=== PATIENT | male | born 1955 | race Caucasian/White ===

== ENCOUNTER → 2020-09-08 00:32 | Outpatient (CLI) | payer MEDICARE, SELFPAY ==
[2020-09-08 20:53] LABS: SARS-CoV-2 RNA PCR Negative
== END ==
PROVIDERS: Internal Medicine Gastroenterology; PCP Internal Medicine; Visit Provider Internal Medicine Gastroenterology
DX: Z01.812 Encounter for preprocedural laboratory examination (principal); Z20.822 Contact with and (suspected) exposure to COVID-19
CPT/HCPCS: C9803; U0003; U0005

== ENCOUNTER 2020-09-11 01:13 | Day surgery (SDC) | payer MEDICARE, SELFPAY ==
[2020-08-30 13:31] VITALS: BMI 32.6
[2020-09-11 06:23] VITALS: BP 119/70; PULSE 57; RESP 16; TEMP 36.1; O2SAT 99; BMI 31.6
--- NOTE | 2020-09-11 07:12 | PM.HPGS ---
History of Present Illness History of Present Illness Consent: Risks, benefits, and alternatives have been discussed and questions answered. Patient agrees to proceed with procedure. Chief complaint: hx of colon polyps Narrative: Spencer De La Cruz is a 65 year old male Referred for colon cancer screening. He has had multiple adenomas removed in the past. Review of Systems Review of Systems: All systems reviewed & are unremarkable except as noted in HPI and below PMFSH Social History Social History Smoking status: Never smoker Living arrangements: with family Gender identity (if verbalized by the patient): Male Spiritual care concerns: No Meds Home Medications and Allergies Home Medications Medication Instructions Recorded Confirmed Type flecainide 50 mg PO Q12H 08/30/20 09/11/20 History cykusllzeqr-npvbupqtz-qirzbssr 1 inh INHALATION DAILY 08/30/20 09/11/20 History [Trelegy Ellipta] gabapentin 300 mg PO DAILY 08/30/20 09/11/20 History glucosamine sulfate [Glucosamine] 500 mg PO DAILY 08/30/20 09/11/20 History magnesium oxide 400 mg PO BID 08/30/20 09/11/20 History metoprolol succinate 25 mg PO Q12H 08/30/20 09/11/20 History montelukast 10 mg PO DAILY 08/30/20 09/11/20 History pantoprazole 20 mg PO QAM 08/30/20 09/11/20 History ranolazine 1,000 mg PO Q12H 08/30/20 09/11/20 History Allergies Allergy/AdvReac Type Severity Reaction Status Date / Time No Known Allergies Allergy Unknown Verified 09/11/20 06:22 Vital Signs Vital Signs - 24 hr 09/11/20 06:23 Temperature 36.1 C L Pulse Rate 57 L Respiratory Rate 16 Blood Pressure 119/70 Pulse Oximetry 99 Exam Resp: Auscultation: clear to auscultation bilaterally Cardio: Rate: regular rate Rhythm: regular rhythm GI: GI Palp: Yes Soft to palpation and No Tenderness to palpation present (GI) Assessment and Plan Assessment and plan (1) Colon cancer screening: Code(s): Z12.11 - Encounter for screening for malignant neoplasm of colon Status: Acute Assessment and Plan: Colonoscopy with possible biopsy or polypectomy or cautery or injection of substances.
--- NOTE | 2020-09-11 07:17 | P.PNAN_ITS ---
Anes - Initial Pre Proc Eval Procedure: Operation Date: 09/11/20 07:30 Proposed Procedures p Screening Colonoscopy - David Collazo MD Date/Time: 09/11/20 07:17 Surgeon: David Collazo MD Pre Op Diagnosis: hx of colon polyps Patient Data Age: 65 Gender: M Height: 6 ft 5 in Weight: 121 kg Last Vital Signs Temp 97.0 F L 09/11/20 06:23 Pulse 57 L 09/11/20 06:23 Resp 16 09/11/20 06:23 BP 119/70 09/11/20 06:23 Pulse Ox 99 09/11/20 06:23 Allergies Allergy/AdvReac Type Severity Reaction Status Date / Time No Known Allergies Allergy Unknown Verified 09/11/20 06:22 Home Medications Medication Instructions Recorded Confirmed Type flecainide 50 mg PO Q12H 08/30/20 09/11/20 History erzzpdvcwuf-wgasvzufo-azalaskz 1 inh INHALATION DAILY 08/30/20 09/11/20 History [Trelegy Ellipta] gabapentin 300 mg PO DAILY 08/30/20 09/11/20 History glucosamine sulfate [Glucosamine] 500 mg PO DAILY 08/30/20 09/11/20 History magnesium oxide 400 mg PO BID 08/30/20 09/11/20 History metoprolol succinate 25 mg PO Q12H 08/30/20 09/11/20 History montelukast 10 mg PO DAILY 08/30/20 09/11/20 History pantoprazole 20 mg PO QAM 08/30/20 09/11/20 History ranolazine 1,000 mg PO Q12H 08/30/20 09/11/20 History Patient hx anesthesia problems: none Family hx anesthesia problems: none [facility] Past Medical History Medical History (Updated 09/11/20 @ 07:17 by Devin Castro MD) Asthma CAD (coronary artery disease) has ablation done for irregular heartbeat GERD (gastroesophageal reflux disease) ROSS (obstructive sleep apnea) Social History Social History Smoking status: Never smoker Living arrangements: with family Gender identity (if verbalized by the patient): Male Spiritual care concerns: No Anes - Eval Final PreProcedure Day of Procedure 09/11/20 07:17 Patient weight: obese Heart: regular rate and rhythm Lungs: clear to auscultation Airway: Mallampati scale class III Neurological: alert and oriented Last oral intake: >/= 8 hours ASA classification: III Emergent: no Anesthetic plan: proceed Anesthesia type and monitoring: general GIVS and standard monitoring Informed Consent: The patient's anesthetic plan and its attendant risks and benefits were discussed with the patient/family/POA. Questions were solicited and answers provided to the satisfaction of the patient/family/POA.
[2020-09-11] MEDS: LACTATED RINGERS 1,000 ML 150 ML IV CONT (07:46)
[2020-09-11 07:49] VITALS: BP 107/64; PULSE 52; RESP 22; O2SAT 98
[2020-09-11 07:59] VITALS: BP 105/67; PULSE 53; RESP 18; O2SAT 99
[2020-09-11 08:09] VITALS: BP 108/64; PULSE 55; RESP 16; O2SAT 98
== END 2020-09-11 08:30 | disposition home or self-care (01) ==
PROVIDERS: PCP Internal Medicine; Visit Provider Internal Medicine Gastroenterology
PROC: 0DJD8ZZ Inspection of Lower Intestinal Tract, Via Natural or Artificial Opening Endoscopic (ICD-10-PCS; CPT 45378; principal; 2020-09-11 07:30)
DX: Z12.11 Encounter for screening for malignant neoplasm of colon (principal); D12.5 Benign neoplasm of sigmoid colon; K63.5 Polyp of colon; I25.10 Atherosclerotic heart disease of native coronary artery without angina pectoris; G47.33 Obstructive sleep apnea (adult) (pediatric); J45.909 Unspecified asthma, uncomplicated; E66.9 Obesity, unspecified; Z68.31 Body mass index [BMI] 31.0-31.9, adult
CPT/HCPCS: 45380; 88305; J2704; J7120

== ENCOUNTER 2021-07-19 18:17 | Emergency (ER) | payer MEDICARE, SELFPAY ==
[2021-07-19 18:20] VITALS: BP 140/83; PULSE 86; RESP 18; TEMP 37.4; O2SAT 98
[2021-07-19 18:34] LABS: Basophils Percent Auto 0.2 % (0.2-1.2); Eosinophils Absolute Auto 0.2 K/mm3 (0-0.3); Eosinophils Percent Auto 1.6 % (0-4.4); Hematocrit 42.4 % (42.0-52.0); Immature Granulocyte Absolute 0.02 K/mm3 (0.00-0.031); Immature Granulocyte Percent A 0.2 % (0-0.5); Lymphocytes Absolute Auto 2.55 K/mm3 (0.9-3.2); Lymphocytes Percent Auto 27.6 % (18.3-44.2); Mean Corpuscular Hemoglobin 32.9 pg (26-34); Mean Corpuscular Volume 99.8 fl (80-100); Mean Platelet Volume 8.8 fl (7.4-10.4); Monocytes Absolute Auto 1.1 K/mm3 (0.1-0.6); Monocytes Percent Auto 11.7 % (2.6-8.5); Neutrophils Absolute Auto 5.4 K/mm3 (1.3-6.7); Neutrophils Percent Auto 58.7 % (45.5-73.1); Platelet Count Result 275 k/mm3 (150-375); Red Blood Count 4.25 M/mm3 (4.6-6.20); Red Cell Distribution Width 13.9 % (11.5-14.5); White Blood Count 9.2 K/mm3 (4.5-10.0)
--- NOTE | 2021-07-19 18:37 | ED.GIBLEED ---
HPI - GI Bleed General Chief complaint: GI Bleed Stated complaint: Rectal Bleeding Time Seen by Provider: 07/19/21 18:19 Source: patient History of Present Illness HPI Narrative: Patient presents with concern for GI bleed. Patient ports a history of bleeding ulcers requiring admission. Reports last GI bleed was a few years ago has been doing well since then. He came in because this afternoon he noted dark quality soft stool stool became more normal however the color remained red with a blood clot he was concerned given his history so he came to the ER for evaluation. Reports he had recent surgery on his wrist and hand has been taking NSAIDs thinks this may be a contributing factor. Denies any abdominal pain denies any nausea vomiting or hematemesis. Denies any lightheadedness or dizziness denies any chest pain. Does report mild shortness of breath cough and congestion recently reports a negative home Covid test Related Data Home Medications Medication Instructions Recorded Confirmed Trelegy Ellipta 1 inh INHALATION DAILY 08/30/20 09/11/20 flecainide 50 mg PO Q12H 08/30/20 09/11/20 gabapentin 300 mg PO DAILY 08/30/20 09/11/20 glucosamine sulfate [Glucosamine] 500 mg PO DAILY 08/30/20 09/11/20 magnesium oxide 400 mg PO BID 08/30/20 09/11/20 metoprolol succinate 25 mg PO Q12H 08/30/20 09/11/20 montelukast 10 mg PO DAILY 08/30/20 09/11/20 pantoprazole 20 mg PO QAM 08/30/20 09/11/20 ranolazine 1,000 mg PO Q12H 08/30/20 09/11/20 Allergies Allergy/AdvReac Type Severity Reaction Status Date / Time No Known Allergies Allergy Unknown Verified 09/11/20 06:22 Review of Systems Review of Systems: CONSTITUTIONAL: Denies fever, chills, or sweats. EYES: Denies visual changes, redness, or discharge. ENT: Denies rhinorrhea, congestion, sore throat, or otalgia. CARDIOVASCULAR: Denies chest pain, palpitations, or edema. RESPIRATORY: Cough and shortness of breath GASTROINTESTINAL: Denies abdominal pain, nausea, vomiting, or diarrhea. GENITOURINARY: Denies dysuria or hematuria. SKIN: Denies rash or itching. MUSCULOSKELETAL: Denies back pain, joint pain, or myalgia. NEUROLOGIC: Denies headache, numbness, dizziness, or weakness. PSYCHIATRIC: Denies anxiety or depression. All systems reviewed & are unremarkable except as noted in HPI and below PMFSH Past Medical History Medical History Asthma CAD (coronary artery disease) has ablation done for irregular heartbeat GERD (gastroesophageal reflux disease) ROSS (obstructive sleep apnea) Social History Social History Smoking status: Never smoker Gender identity (if verbalized by the patient): Male Spiritual care concerns: No Exam Narrative: GENERAL: Well-appearing, well-nourished, and in no acute distress. HEAD: Normocephalic, atraumatic. EYES: PERRLA and EOMI. ENT: Nares clear, no rhinorrhea or epistaxis. Mucous membranes moist. NECK: Supple. No masses. No JVD CHEST: Clear to auscultation. No respiratory distress. No wheezes rales or rhonchi HEART: Regular rate and rhythm. No murmur heard. Normal peripheral pulses. ABDOMEN: Soft, nontender, nondistended, normal active bowel sounds. RECTAL: Blood noted around the rectum multiple hemorrhoids present stool is brown with redness tenderness not grossly melanotic Hemoccult is positive EXTREMITIES: Normal range of motion. No edema. SKIN: Warm, dry, no rash. NEURO: No focal deficits. Alert and oriented x3. PSYCH: Normal mood and affect. Course Reevaluation(s) Reevaluation #1: Patient resting comfortably continues to be without pain dizziness or palpitations. Case discussed with Dr. Petty. Exam is most suggestive of lower GI bleed hemorrhoids present symptoms may represent bleeding hemorrhoid. H&H is normal vital signs normal patient currently feels like he is in his usual state of health he is appropriate for continued o
[2021-07-19 18:43] LABS: Alanine Aminotransferase 11 U/L (4-50); Albumin Level 4.4 g/dL (3.5-5.1); Alkaline Phosphatase 52 U/L (38-126); Anion Gap 11 mmol/L (8-16); Aspartate Amino Transferase 29 U/L (17-59); Bilirubin,Total 0.8 mg/dL (0.2-1.3); Blood Urea Nitrogen 23 mg/dL (9-20); Calcium 9.7 mg/dL (8.4-10.2); Carbon Dioxide 26 mmol/L (22-30); Chloride 104 mmol/L (98-107); Estimated CRCL calculation 67 ml/min; Estimated Glomerular Filt Rate 60; Glucose 109 mg/dL (65-110); Potassium 3.7 mmol/L (3.4-5.0); Sodium 141 mmol/L (137-145)
[2021-07-19 18:45] LABS: Prothrombin Time 13.2 Seconds (11.1-14.7)
[2021-07-19 18:46] LABS: Partial Thromboplastin Time 33.4 SECONDS (22.3-36.8)
[2021-07-19] MEDS: PANTOPRAZOLE SODIUM IV 40 MG VIAL IV PUSH (18:59)
[2021-07-19] MEDS: OCTREOTIDE ACETATE 50 MCG/ML VIAL IV PUSH (18:59)
[2021-07-19 20:21] VITALS: BP 120/77; PULSE 84; RESP 18; O2SAT 99
== END 2021-07-19 20:22 | disposition home or self-care (01) ==
PROVIDERS: Emergency Provider Emergency Medicine; PCP Internal Medicine
DX: K92.2 Gastrointestinal hemorrhage, unspecified (principal); J45.909 Unspecified asthma, uncomplicated; I25.10 Atherosclerotic heart disease of native coronary artery without angina pectoris; K21.9 Gastro-esophageal reflux disease without esophagitis; G47.33 Obstructive sleep apnea (adult) (pediatric)
CPT/HCPCS: 36415; 80053; 85025; 85610; 85730; 86850; 86900; 86901; 96374; 96375; 99284; C9113; J2354

== ENCOUNTER 2023-05-08 14:51 | Emergency (ER) | payer MEDICARE, SELFPAY ==
--- NOTE | ~2023-05-08 | XR_ITS ---
EXAMINATION: XR chest 2V DATE: 05/08/2023 15:52 INDICATION: 10 days of cough and shortness of breath TECHNIQUE: PA and lateral views of the chest were obtained. COMPARISON: None FINDINGS: Linear discoid atelectasis overlying the right hemidiaphragm. A few scattered small calcified pulmona ry nodules along with calcified mediastinal and bilateral hilar lymph nodes nodes consistent with old granulomatous disease. Heart size is normal. And screw fixation for lower cervical anterior spinal f usion. Moderate thoracic spondylosis with chronic appearing mild anterior wedging of a midthoracic ve rtebral body. IMPRESSION: 1. Mild discoid atelectasis at the right lung base. No other acute cardiopulmonary disease. Reviewed, dictated and finalized at location [facility] IMPRESSION: 1. Mild discoid atelectasis at the right lung base. No other acute cardiopulmon karmen disease.
[2023-05-08 15:06] VITALS: BP 108/80; PULSE 60; RESP 16; TEMP 37.1; O2SAT 99
--- NOTE | 2023-05-08 15:32 | ED.URI ---
HPI - URI/Sore Throat General Chief Complaint: Upper Respiratory Infection Stated Complaint: Trouble Breathing, Cough, Wheezing Time Seen by Provider: 05/08/23 15:32 Source: patient Mode of arrival: ambulatory Limitations: no limitations History of Present Illness HPI Narrative: 68-year-old male presented for complaint of cough and inability to take in deep breaths for about 10 days. He states at the onset he notified his doctor, who prescribed antibiotic and steroid. He completed the meds about 5 days ago, reports improvement in symptoms and states he does not feel bad. However he states he feels like he can only take shallow breaths and has had wheezing with deep breaths. Says lungs are 'burning.' Also reports feeling lightheaded with coughing fits and at times with standing up. Also reports decreased blood pressure. He denies chest pain, nausea vomiting, fevers or chills. Related Data Home Medications Medication Instructions Recorded Confirmed flecainide 50 mg tablet 50 mg PO Q12H 08/30/20 05/08/23 gabapentin 300 mg tablet 300 mg PO DAILY 08/30/20 05/08/23 magnesium oxide 400 mg PO BID 08/30/20 05/08/23 metoprolol succinate 25 mg 25 mg PO Q12H 08/30/20 05/08/23 tablet,extended release 24 hr montelukast 10 mg tablet 10 mg PO DAILY 08/30/20 05/08/23 pantoprazole 20 mg tablet,delayed 20 mg PO QAM 08/30/20 05/08/23 release ranolazine 1,000 mg 1,000 mg PO Q12H 08/30/20 05/08/23 tablet,extended release,12 hr Allergies Allergy/AdvReac Type Severity Reaction Status Date / Time No Known Allergies Allergy Unknown Verified 05/08/23 15:07 Review of Systems Review of Systems: CONSTITUTIONAL: Denies body aches, fever, chills, or sweats. EYES: Denies visual changes, redness, or discharge. ENT: Denies rhinorrhea, congestion, sore throat, or otalgia. CARDIOVASCULAR: Denies chest pain, palpitations, or edema. RESPIRATORY: Reports cough, sob, wheezing. GASTROINTESTINAL: Denies abdominal pain, nausea, vomiting, or diarrhea. GENITOURINARY: Denies dysuria or hematuria. SKIN: Denies rash, itching, or wounds. MUSCULOSKELETAL: Denies back pain, joint pain, or myalgia. NEUROLOGIC: Denies headache, numbness, tingling, or weakness. All systems reviewed & are unremarkable except as noted in HPI and below PMFSH Past Medical History Medical History Asthma CAD (coronary artery disease) has ablation done for irregular heartbeat GERD (gastroesophageal reflux disease) ROSS (obstructive sleep apnea) Social History Social History Smoking status: Never smoker Living arrangements: with family Gender identity (if verbalized by the patient): Male Spiritual care concerns: No Comments At time of signature, I have reviewed and agree with nursing past medical, surgical, social and family history unless otherwise noted. Please see nursing chart for further information. There is no relevant family history pertinent to the presenting complaint Exam Narrative: GENERAL: Well-appearing, in no acute distress. EYES: EOMI. No redness or drainage. Conjunctivae normal. ENT: Mucous membranes pink and moist. No rhinorrhea. TMs normal bilaterally. Throat normal. Uvula midline. NECK: Normal AROM. Supple. CHEST: No respiratory distress. Expiratory wheezing to posterior jones. Occasional nonproductive cough. Speaks full sentences. HEART: Regular rate and rhythm. ABDOMEN: Soft, nontender, nondistended SKIN: Warm, dry, no rash. Capillary refill normal. Normal skin turgor. NEURO: Alert and oriented x3. Gait steady. PSYCH: Normal affect. Course Course Emergency Course: Patient is aware of diagnosis, understands and agrees to treatment plan. Anticipatory guidance given. Patient agrees to follow-up as directed and is aware of reasons to seek care at the emergency department. Portions of this record may have
[2023-05-08] MEDS: ALBUTEROL SULFATE NEB 2.5 MG/3 ML INH INHALATION (15:56)
== END 2023-05-08 16:34 | disposition home or self-care (01) ==
PROVIDERS: Emergency Provider Nurse Practitioner Family; PCP Internal Medicine
DX: J40 Bronchitis, not specified as acute or chronic (principal); I25.10 Atherosclerotic heart disease of native coronary artery without angina pectoris; Z79.899 Other long term (current) drug therapy
CPT/HCPCS: 71046; 99213; G0463

== ENCOUNTER 2023-06-12 11:19 | Emergency (ER) | payer MEDICARE, SELFPAY ==
[2023-06-12 11:29] VITALS: BP 103/68; PULSE 55; RESP 16; TEMP 36.5; O2SAT 99
--- NOTE | 2023-06-12 11:51 | ED.URI ---
HPI - URI/Sore Throat General Chief Complaint: Upper Respiratory Infection Stated Complaint: Cough;Congestion Time Seen by Provider: 06/12/23 11:34 Source: patient and RN notes reviewed Mode of arrival: ambulatory Limitations: no limitations History of Present Illness HPI Narrative: Patient presents today complaining of 4 day history of occasionally productive cough, wheezing, rhinorrhea. States it is hard to take a deep breath so he has been breathing shallowly. He has been taking DayQuil and NyQuil with some relief as well as using his rescue inhaler. 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 States he had something similar in April and was treated with antibiotics and steroids by his PCP as well as another course of steroids at Urgent Care. States he was feeling much better for about 3 weeks before these symptoms returned. States at work he was exposed to coworkers with COVID, but has tested himself at home and has been negative. Related Data Home Medications Medication Instructions Recorded Confirmed flecainide 50 mg tablet 50 mg PO Q12H 08/30/20 06/12/23 gabapentin 300 mg tablet 300 mg PO DAILY 08/30/20 06/12/23 magnesium oxide 400 mg PO BID 08/30/20 06/12/23 metoprolol succinate 25 mg 25 mg PO Q12H 08/30/20 06/12/23 tablet,extended release 24 hr montelukast 10 mg tablet 10 mg PO DAILY 08/30/20 06/12/23 pantoprazole 20 mg tablet,delayed 20 mg PO QAM 08/30/20 06/12/23 release ranolazine 1,000 mg 1,000 mg PO Q12H 08/30/20 06/12/23 tablet,extended release,12 hr Allergies Allergy/AdvReac Type Severity Reaction Status Date / Time No Known Allergies Allergy Unknown Verified 06/12/23 11:45 Review of Systems Review of Systems: CONSTITUTIONAL: Denies body aches, fever, chills, or sweats. EYES: Denies visual changes, redness, or discharge. ENT: Denies congestion, sore throat, or otalgia.+ rhinorrhea CARDIOVASCULAR: Denies chest pain, palpitations, or edema. RESPIRATORY: + cough, wheezing. Denies shortness of breath GASTROINTESTINAL: Denies abdominal pain, nausea, vomiting, or diarrhea. GENITOURINARY: Denies dysuria or hematuria. SKIN: Denies rash, itching, or wounds. MUSCULOSKELETAL: Denies back pain, joint pain, or myalgia. NEUROLOGIC: Denies headache, numbness, tingling, or weakness. PSYCH: Denies depression or anxiety. [facility] Past Medical History Medical History Asthma CAD (coronary artery disease) has ablation done for irregular heartbeat GERD (gastroesophageal reflux disease) ROSS (obstructive sleep apnea) Social History Social History Smoking status: Never smoker Living arrangements: with family Gender identity (if verbalized by the patient): Male Spiritual care concerns: No Comments At time of signature, I have reviewed and agree with nursing past medical, surgical, social and family history unless otherwise noted. Please see nursing chart for further information. There is no relevant family history pertinent to the presenting complaint Exam Narrative: GENERAL: Mildly ill-appearing, well-nourished, and in no acute distress. HEAD: Normocephalic, atraumatic. EYES: EOMI. No redness or drainage. Conjunctivae normal. ENT: Mucous membranes pink and moist. Nares clear. No rhinorrhea. TMs normal bilaterally. Throat normal. Uvula midline. NECK: Normal AROM. Supple. No lymphadenopathy. CHEST: No respiratory distress. Expiratory wheezes throughout. Inspiratory wheeze in the left lower lobe HEART: Regular rate and rhythm. No murmur appreciated. Normal peripheral pulses. EXTREMITIES: Normal range of motion. No edema. SKIN: Warm, dry, no rash. Capillary refill normal. Normal skin turgor. NEURO: No focal deficits. Alert and oriented x3. Gait steady. PSYCH: Normal affect. No signs of depression or anxiety. Course Course Level of Care:
== END 2023-06-12 12:25 | disposition home or self-care (01) ==
PROVIDERS: Emergency Provider Nurse Practitioner; PCP Internal Medicine
DX: J22 Unspecified acute lower respiratory infection (principal); Z20.822 Contact with and (suspected) exposure to COVID-19; J45.909 Unspecified asthma, uncomplicated; I25.10 Atherosclerotic heart disease of native coronary artery without angina pectoris; K21.9 Gastro-esophageal reflux disease without esophagitis
CPT/HCPCS: 87426; 87804; 94640; 99213; G0463

== ENCOUNTER 2023-08-07 09:02 | Emergency (ER) | payer MEDICARE, SELFPAY ==
--- NOTE | 2023-08-07 09:08 | ED.URI ---
HPI - URI/Sore Throat General Chief Complaint: Upper Respiratory Infection Stated Complaint: Sinus Infection Symptoms Time Seen by Provider: 08/07/23 09:52 Source: patient and RN notes reviewed Mode of arrival: ambulatory Limitations: no limitations History of Present Illness HPI Narrative: 68-year-old male presents concern for over 1 week history of productive cough, sinus congestion, drainage. Reports he has been taking rscp-vmy-wjalikl medications relief. He denies fever, body aches, chills, sweats. Reports he is having open heart surgery in 1 month. MD elicited complaint: cough, nasal congestion and sinus pain Related Data Home Medications Medication Instructions Recorded Confirmed flecainide 50 mg tablet 50 mg PO Q12H 08/30/20 08/07/23 gabapentin 300 mg tablet 300 mg PO DAILY 08/30/20 08/07/23 magnesium oxide 400 mg PO BID 08/30/20 08/07/23 metoprolol succinate 25 mg 25 mg PO Q12H 08/30/20 08/07/23 tablet,extended release 24 hr montelukast 10 mg tablet 10 mg PO DAILY 08/30/20 08/07/23 pantoprazole 20 mg tablet,delayed 20 mg PO QAM 08/30/20 08/07/23 release ranolazine 1,000 mg 1,000 mg PO Q12H 08/30/20 08/07/23 tablet,extended release,12 hr Allergies Allergy/AdvReac Type Severity Reaction Status Date / Time No Known Allergies Allergy Unknown Verified 08/07/23 09:28 Review of Systems Review of Systems: CONSTITUTIONAL: Denies malaise, chills, sweats, or fever. EYES: Denies visual changes, redness, or discharge. ENT: Reports rhinorrhea, congestion, sinus pain CARDIOVASCULAR: Denies chest pain, palpitations, or edema. RESPIRATORY: Reports productive cough. Denies dyspnea. GASTROINTESTINAL: Denies abdominal pain, nausea, vomiting, diarrhea SKIN: Denies rash or itching. MUSCULOSKELETAL: Denies myalgia. NEUROLOGIC: Denies headache. All systems reviewed & are unremarkable except as noted in HPI and below PMFSH Past Medical History Medical History Asthma CAD (coronary artery disease) has ablation done for irregular heartbeat GERD (gastroesophageal reflux disease) ROSS (obstructive sleep apnea) Social History Social History Smoking status: Never smoker Living arrangements: with family Gender identity (if verbalized by the patient): Male Spiritual care concerns: No Comments At time of signature, agree with nursing past medical, surgical, social and family history. There is no relevant family history pertinent to the presenting complaint Exam Narrative: GENERAL: Well-appearing, well-nourished, and in no acute distress. HEAD: Normocephalic EYES: PERRLA, conjunctivae clear ENT: Nares clear, turbinates edematous and erythematous. Mucous membranes moist. TM pearly lehman with dull light reflex bilaterally; no tragal tenderness. Oropharynx not erythematous without lesions. Tonsils not enlarged and without exudate, no drooling, no hoarseness, no trismus, uvula midline. NECK: Supple. No lymphadenopathy CHEST: Clear to auscultation, breath sounds equal. No wheezing, rhonchi, rales, or stridor. No respiratory distress, speaks in full sentences. HEART: Regular rate and rhythm. No murmur heard. SKIN: Warm, dry, no rash. NEURO: Alert and oriented x3. PSYCH: Normal mood and affect Course Course Emergency Course: Patient is aware of diagnosis, understands and agrees to treatment plan. Anticipatory guidance given. Patient agrees to follow-up as directed and is aware of reasons to seek care at the emergency department. Portions of this record may have been created with voice recognition software Level of Care: Express Care Visit Vital Signs Vital signs: Reviewed. MDM - URI/Sore Throat MDM Narrative Medical decision making narrative: Differential diagnosis considered: Hope virus, strep pharyngitis, allergic rhinitis, upper respiratory tract infection, sinusitis, rhinosinus
[2023-08-07 09:15] VITALS: BP 90/60; PULSE 63; RESP 16; TEMP 36.6; O2SAT 98
== END 2023-08-07 10:05 | disposition home or self-care (01) ==
PROVIDERS: Emergency Provider Nurse Practitioner; PCP Internal Medicine
DX: J32.9 Chronic sinusitis, unspecified (principal); J40 Bronchitis, not specified as acute or chronic; J45.909 Unspecified asthma, uncomplicated; I25.10 Atherosclerotic heart disease of native coronary artery without angina pectoris; K21.9 Gastro-esophageal reflux disease without esophagitis
CPT/HCPCS: 99213; G0463

== ENCOUNTER 2024-03-28 10:02 | Outpatient (CLI) | payer MEDICARE, SELFPAY ==
--- NOTE | ~2024-03-28 | XR_ITS ---
XR hip RT 2V w AP pelvis Ordering provider: Raimundo Mast MD History: . R52 - Pain, unspecified . Comparison: None. FINDINGS: BONES: No acute fracture or dislocation. HIP JOINT SPACES: Normal. SACROILIAC JOINT SPACES/LUMBAR SPINE: The sacroiliac joint spaces are normal. Mild degenerative lo es of the visualized lower lumbar spine. PUBIC SYMPHYSIS: Normal. SOFT TISSUES: Normal. IMPRESSION: No acute osseous abnormality pelvis and right hip. Reviewed, dictated and finalized at location [facility]
== END 2024-03-28 10:03 | disposition home or self-care (01) ==
LOC: MICIMG 10:04
PROVIDERS: PCP Orthopaedic Surgery; Visit Provider Orthopaedic Surgery
DX: R52 Pain, unspecified (principal)
CPT/HCPCS: 73502

== ENCOUNTER 2024-05-24 15:30 | Outpatient (RCR) | payer MEDICARE, SELFPAY ==
--- NOTE | 2024-04-28 10:02 | OPREHPOC ---
Outpatient Therapy Plan of Care This is a Multidisciplinary Plan of Care that may contain components documented by all disciplines (PT, OT, and ST.) PT Problem 1 PT Problem #1 Knowledge Deficit PT Goal 1 Goal / Goal Update *indep with HEP Target Visit 6 PT Problem 2 PT Problem #2 Pain PT Goal 1 Goal / Goal Update * pt report pain at worst in R hip of 07/25 Target Visit 6 PT Goal 2 Goal / Goal Update * pt report walking/standing tolerance of 30 minutes before pain increase/have to sit down Target Visit 6 PT Problem 3 PT Problem #3 Impaired Strength PT Goal 1 Goal / Goal Update increase strength of trunk, hips and ankle PF, to improve gait pattern: 1* single leg standing R 20 seconds 2* single leg standing L 20 seconds 3* supine bridge x 20 reps with good control 4* standing bilateral ankle PF x 15 reps with 2 lift of heel off ground Target Visit 6 PT Problem 4 PT Problem #4 Impaired Flexibility PT Goal 1 Goal / Goal Update increase flexibility of hamstring to decrease pull on hips and lumbar spine: supine R and L SLR to 60' Target Visit 6
--- NOTE | 2024-04-28 10:02 | PTOPEVAL1 ---
Assessment and note entered by Karissa De Los Santos, PT Evaluation Information Assessment Status Evaluation ICD-10 Condition Codes (PT) Pain in right hip M25.551 Other ICD-10 Condition Codes ( R hip trochanteric bursitis M70.61 PT) Onset about year Subjective Information have a medrol pack, but not taken yet, to use if hip flares up with pain; have not had PT for his hips before had X ray of hip: mild narrowing and acetabular dysplagia; severe DDD L 4-5, L5-S1 activity: ride bicycle, deer g[place]; able to do everything at home; work at [employer] home, 3-5 hours shift; walking limited due to hip pain 15-20 min Reported Pain Level Pain Score Self Report Additional Pain Score Comments pain range of 0-6/10 in the past week; R lateral hip and anterior hip; not shooting, ache, sore, makes me limp increase pain: walking 15-20 minutes, decrease pain: sit, rest, not use heat, ice, meds; sleeping is OK, able to lie on either side; have pain in both hips, R more than L; history of back pain and surgery- not limit him except with lifting and little sore if do too much Assessment PT Clinical Summary Spencer has the diagnosis of R hip trochanteric bursitis. He reports hip pain is better now, flares up with increase walking and standing over 15- 20 minutes. LE functional scale self rating of 45% limitation in activity level. History includes: recent cardiac surgery and pacemaker in September 2023, bilateral TKR, 2 back surgeries, on blood thinner. With the evaluation: he has weakness of hips, trunk and standing ankle PF- loss of balance, with single leg standing on R and L 2-3 seconds and unstable; gait pattern of bilateral hip ER -R>L and decreased control of hips and trunk with stance phase. Tightness over both hamstrings; no tenderness with palpation over R and L ITB today. Skilled PT services are indicated to increase strength of trunk, hips and ankle PF, and increase hamstring flexibility, with education to improve gait pattern and decrease abnormal strain on hips and back with walking; use of modalities PRN and monitor pain with increased activity level. Plan of Care Interventions Gait Training,Hot Pack/Cold Pack,Manual Therapy, Neuro Re-education,Patient/Caregiver Education, Therapeutic Activities,Therapeutic Exercise PT Services Indicated Yes Treatment Frequency and 1-2x/wk for 6 visits Duration These treatments will address the objective and functional deficits as defined above. The patient will be advanced safely and appropriately in order for the patient to progress towards his/her prior level of function. Additional exercises will be introduced and as well as a comprehensive home exercise program upon discharge, if needed, ?to ensure carryover of functional gains achieved in the clinic. This treatment plan has been reviewed and agreement upon by the patient.
--- NOTE | 2024-05-10 13:18 | PCPTNOTE ---
pt called and canceled today's appt due to illness.
--- NOTE | 2024-05-24 15:47 | PTOPDC ---
Assessment and note entered by Karissa De Los Santos, PT Assessment Status Discharge ICD-10 Condition Codes (PT) Pain in right hip M25.551 Other ICD-10 Condition Codes ( R hip trochanteric bursitis M70.61 PT) Onset about year Subjective Information the hip pain is inconsistent; pain comes and goes, bothers me about 1x every 2 weeks; cannot really tell what sets it off; have been doing all of the exercises at home; want to stop therapy and keep up with the exercises at home; Reported Pain Level Pain Score Self Report Additional Pain Score Comments pain range in the past week: 0-4/10; R lateral and anterior hip joint last week did something and set off the L anterior hip pain reported standing/walking tolerance before have to sit down: 2-3 hours walking on concrete floor bothers him; Assessment PT Clinical Summary Spencer has received 4 PT sessions; he called/ canceled 1 appointment. Compared to the initial evaluation: pain from 0-6/ 10 to 0-4/10; self assessment with LE functional scale rating from 45 to 33% limitation in activity level; reported walking/standing tolerance improved; increased strength of hips, but still have decreased bilateral ankle PF and ability to single leg stand is 5-8 seconds on R and L, and unstable. No tenderness reported with palpation over R lateral hip or ITB. Education completed for HEP and posture. The goals were partially achieved. Discharge PT. He is to continue with his HEP> Plan of Care PT Services Indicated No
== END 2024-05-24 16:58 | disposition home or self-care (01) ==
LOC: ANHPT 15:30
PROVIDERS: PCP Orthopaedic Surgery; Visit Provider Orthopaedic Surgery
DX: M70.61 Trochanteric bursitis, right hip (principal)
CPT/HCPCS: 97110; 97161; 97530

== ENCOUNTER 2024-07-21 09:19 | Emergency (ER) | payer MEDICARE, SELFPAY ==
--- NOTE | ~2024-07-21 | XR_ITS ---
HISTORY: mid back pain (left side) x 2 days w/o injury COMPARISON: Reference is made to a PA and lateral radiograph of the chest dated 05/08/2023 TECHNIQUE: 2 views of the thoracic spine were performed. FINDINGS: Compression of the superior endplate of T7 is identified, unchanged from plain radiograph 05/08/2023. Bone mineralization is age-appropriate. Mild significant degenerative disease. IMPRESSION: No acute compression fracture, as detailed above. Reviewed, dictated and finalized at location A. TOUCHING MACHINE OPERATOR
--- NOTE | 2024-07-21 09:21 | ED.BACK ---
HPI - Back Pain/Injury General Chief Complaint: Back Pain/Injury Stated Complaint: Back Pain Source: patient and RN notes reviewed Mode of arrival: ambulatory Limitations: no limitations History of Present Illness HPI Narrative: Patient is a 69-year-old male who presents to the [facility] with complaints of mid back pain starting on Thursday. Patient states that the pain is primarily on the left side. The pain intensifies with movement or certain positioning. He denies any chest pain or shortness of breath. Denies any known injury. 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 He states that he did go work out at the [facility] on Thursday doing a stationary bike, and his pain intensified by Thursday evening. He denies numbness. Denies dysfunctional bladder or bowel. Related Data Home Medications ?Medication ?Instructions ?Recorded ?Confirmed ?Last Taken ?Type magnesium oxide 400 mg PO BID 08/30/20 07/21/24 09/10/20 History pantoprazole 20 mg tablet,delayed 20 mg PO QAM 08/30/20 07/21/24 09/10/20 History release apixaban 5 mg tablet (Eliquis) 5 mg PO BID 03/30/24 07/21/24 Unknown History dofetilide 500 mcg capsule 500 mcg PO BID 03/30/24 07/21/24 Unknown History fluticasone fur. 100 mcg-umeclid 1 inh inhalation DAILY 03/30/24 07/21/24 Unknown History 62.5 mcg-vilant 25 mcg inhalat.powder (Trelegy Ellipta) gabapentin 300 mg tablet 600 mg PO DAILY 03/30/24 07/21/24 Unknown History magnesium 200 mg tablet 400 mg PO DAILY 03/30/24 07/21/24 Unknown History midodrine 5 mg tablet 5 mg PO .QD 03/30/24 07/21/24 Unknown History Allergies Allergy/AdvReac Type Severity Reaction Status Date / Time No Known Allergies Allergy Unknown Verified 07/21/24 09:37 Review of Systems Review of Systems: CONSTITUTIONAL: Denies fever, chills, or sweats. EYES: Denies visual changes, redness, or discharge. ENT: Denies otalgia and sore throat CARDIOVASCULAR: Denies chest pain, palpitations, or edema. RESPIRATORY: Denies cough or dyspnea. GASTROINTESTINAL: Denies abdominal pain, nausea, vomiting, or diarrhea. GENITOURINARY: Denies dysuria or hematuria. SKIN: Denies rash or itching. MUSCULOSKELETAL: Denies joint pain or myalgia. Reports back pain. NEUROLOGIC: Denies headache, numbness, or weakness. Pertinent positives per HPI. [facility] Past Medical History Medical History DVT (deep venous thrombosis) GERD (gastroesophageal reflux disease) ROSS (obstructive sleep apnea) Asthma CAD (coronary artery disease) has ablation done for irregular heartbeat Social History Social History Smoking status: Never smoker Alcohol intake: never Substance use: never Do You Feel Safe in your Home?: Yes Lack of Transportation: No Lack of Food: Never True Current Housing: I Have Housing Concerned About Future Housing: No Difficulty Paying Gas/Electric Bills: No Difficulty Paying for Meds: No Currently Unemployed: No Education: Bachelor's Degree Difficulty w/ Childcare or Family Care: No Living arrangements: with family Gender identity (if verbalized by the patient): Male Spiritual care concerns: No Comments At the time of my signature, I reviewed and agree with the nursing past medical, surgical, social, and family history. There is no relevant family history pertinent to the patient complaint. Exam Narrative: GENERAL: This is a well-nourished, well-developed patient, in no apparent distress. HEAD: normocephalic, atraumatic. EYES: PERRL. Sclera clear/white. Vision is grossly intact. EARS: External ears normal, auditory canals clear and without drainage, TMs normal without perforation. Hearing grossly intact. NOSE: External nose normal with no obvious nasal discharge, nares without redness, no rhinorrhea. THROAT: Mucous membranes moist, posterior pharynx clear. NECK: Neck supple, non-tender without lymphadenopathy, masses or thyromegaly. CARDIOVASCULAR: Regular rate and rhythm without murmurs, gallops, or rubs. RESPIRATORY: Clear to auscultation. Breath sounds equal bilaterally. No wheezes, rales, or rhonchi. GASTROINTESTINAL: Abdomen soft, non-tender, nondistended. Bowel sounds are active. No hepato-splenomegaly, or palpable masses. No guarding. SKIN: warm, intact with no suspicious lesions or rash, good texture and turgor. NEURO: awake, alert, and oriented to person, place and time. There were no obvious focal neurologic abnormalities. EXTREMITIES: No clubbing, cyanosis, or edema. No joint tenderness, effusion, or edema noted. BACK: Tenderness in the paraspinous muscles in the thoracic area. No tenderness over the spinous processes of the lumbar vertebrae. LEGS: Normal strength including dorsi-flexion and plantar flexion of the feet. Negative bilateral straight leg raising, normal and symmetrical knee and ankle reflexes. Course Course Level of Care: Express Care Visit Vital Signs Vital signs: Vital Signs Temperature 98.2 F 07/21/24 09:41 Pulse Rate 70 07/21/24 09:41 Respiratory Rate 16 07/21/24 09:41 Blood Pressure 126/74 07/21/24 09:41 Pulse Oximetry 99 07/21/24 09:41 Temperature 98.2 F 07/21/24 09:41 Pulse Rate 70 07/21/24 09:41 Respiratory Rate 16 07/21/24 09:41 Blood Pressure 126/74 07/21/24 09:41 Pulse Oximetry 99 07/21/24 09:41 Reviewed MDM - Back Pain/Injury MDM Narrative Medical decision making narrative: Use the RICE method at home. May take ibuprofen and/or Tylenol if needed. If symptoms persist in 1 week after conservative treatment, follow-up with specialist. Differential Diagnosis Differential diagnosis: Likely lumbar radiculopathy, strain of lumbar region and thoracic back pain Imaging Data Attestation: I personally reviewed and interpreted this imaging study as follows: Radiologist's impression: [facility] [address] [place] [address] XRay Report Signed Patient: Spencer De La Cruz : 1955 MR#: [id number] Age: 69 Acct:[id number] Loc: [facility] ADM Date: 07/21/24Attending Dr: Ordering Physician: Chela Winkler APRN Date of Service: 07/21/24 Procedure(s): XR thoracic spine 3V Accession Number(s): [id number] cc: Chela Winkler APRN; [employer]ER[employer] DOWEL DRAWING OPERATOR PHYSICIAN~ HISTORY: mid back pain (left side) x 2 days w/o injury COMPARISON: Reference is made to a PA and lateral radiograph of the chest dated 05/08/2023 TECHNIQUE: 2 views of the thoracic spine were performed. FINDINGS: Compression of the superior endplate of T7 is identified, unchanged from plain radiograph 05/08/2023. Bone mineralization is age-appropriate. Mild significant degenerative disease. IMPRESSION: No acute compression fracture, as detailed above. Reviewed, dictated and finalized at location A. IAL EDUCATION BUS DRIVER Please be advised this is a medical document. It is intended for [id number] communication. It is written in medical language and may contain unfamiliar abbreviations or verbiage. Medical documents are intended to carry relevant information, facts as evident, and the clinical opinion of the practitioner at the time of the encounter. This report may have been done utilizing a voice recognition system. Attempts have been made to correct errors. However, there may be uncorrected grammatical, spelling, and recognition errors present. The file time of this note does not necessarily represent the time of service. Dictated By: Yolie Barriga MD 07/21/24 1005 Signed By: <Electronically signed by Yolie Barriga MD in OV> 07/21/24 1008 Critical Care Time Critical Care Time Critical Care Time: No Discharge Plan Discharge Clinical Impression: Acute thoracic myofascial strain Patient Disposition: Home, Self-Care Condition: Stable Instructions: P.R.I.C.E. Treatment (ED), Thoracic Back Strain (ED) Additional Instructions: Use the RICE method at home. May take ibuprofen and/or Tylenol if needed. If symptoms persist in 1 week after conservative treatment, follow-up with specialist. Patient Language: Icelandic Prescriptions: New dexamethasone 4 mg tablet 4 mg PO DAILY 5 Days Qty: 5 0RF cyclobenzaprine 10 mg tablet 10 mg PO HS PRN (Reason: muscle spasm) Qty: 10 0RF No Action Eliquis 5 mg tablet 5 mg PO BID dofetilide 500 mcg capsule 500 mcg PO BID Trelegy Ellipta 100-62.5-25 mcg blister with device 1 inh inhalation DAILY magnesium 200 mg tablet 400 mg PO DAILY midodrine 5 mg tablet 5 mg PO .QD Rx Instructions: do not give last dose of day after 6PM or within 4 hrs of bedtime pantoprazole 20 mg Tablet,Delayed Release (Dr/Ec) 20 mg PO QAM magnesium oxide 400 mg magnesium Tablet 400 mg PO BID gabapentin 300 mg tablet 600 mg PO DAILY Follow-up/Referrals: PHYSICIAN,FIBERGLASS DOWEL DRAWING OPERATOR [Primary Care Provider] - Time of Disposition: 10:17
[2024-07-21 09:41] VITALS: BP 126/74; PULSE 70; RESP 16; TEMP 36.8; O2SAT 99
[2024-07-21] MEDS: dexAMETHasone SOD PHOS INJ 10 MG/ML 1 ML VIAL IM (10:15)
== END 2024-07-21 10:37 | disposition home or self-care (01) ==
PROVIDERS: Emergency Provider Nurse Practitioner
DX: S29.012A Strain of muscle and tendon of back wall of thorax, initial encounter (principal); I25.10 Atherosclerotic heart disease of native coronary artery without angina pectoris; Z79.899 Other long term (current) drug therapy; Z79.01 Long term (current) use of anticoagulants; Z86.718 Personal history of other venous thrombosis and embolism; X50.0XXA Overexertion from strenuous movement or load, initial encounter
CPT/HCPCS: 72072; 96372; 99213; G0463; J1100

== ENCOUNTER 2024-11-05 08:09 | Emergency (ER) | payer MEDICARE, SELFPAY ==
[2024-11-05 08:20] VITALS: BP 95/69; PULSE 69; RESP 16; TEMP 36.6; O2SAT 99
--- NOTE | 2024-11-05 08:32 | ED.GENADULT ---
HPI - General Adult General Chief complaint: Skin/Abscess/Foreign Body Stated complaint: Shingles Source: patient Mode of arrival: ambulatory Limitations: no limitations History of Present Illness HPI narrative: Patient presents for evaluation of a painful rash to the left anterior and posterior chest wall. He initially had some pain 3 days ago. He has since developed some vesicles in that area. He has had chickenpox and shingles in the past. He reports a prickling sensation in the area with associated numbness and tingling. No new lotions, soaps, detergents or topical products. He is currently prescribed gabapentin 300mg at bedtime. Related Data Home Medications ?Medication ?Instructions ?Recorded ?Confirmed ?Last Taken ?Type magnesium oxide 400 mg PO BID 08/30/20 07/21/24 09/10/20 History pantoprazole 20 mg tablet,delayed 20 mg PO QAM 08/30/20 07/21/24 09/10/20 History release apixaban 5 mg tablet (Eliquis) 5 mg PO BID 03/30/24 07/21/24 Unknown History dofetilide 500 mcg capsule 500 mcg PO BID 03/30/24 07/21/24 Unknown History fluticasone fur. 100 mcg-umeclid 1 inh inhalation DAILY 03/30/24 07/21/24 Unknown History 62.5 mcg-vilant 25 mcg inhalat.powder (Trelegy Ellipta) gabapentin 300 mg tablet 600 mg PO DAILY 03/30/24 07/21/24 Unknown History magnesium 200 mg tablet 400 mg PO DAILY 03/30/24 07/21/24 Unknown History midodrine 5 mg tablet 5 mg PO .QD 03/30/24 07/21/24 Unknown History Allergies Allergy/AdvReac Type Severity Reaction Status Date / Time No Known Allergies Allergy Unknown Verified 07/21/24 09:37 Review of Systems Review of Systems: CONSTITUTIONAL: Denies fever, chills, or sweats. EYES: Denies visual changes, redness, or discharge. ENT: Denies rhinorrhea, congestion, sore throat, or otalgia. CARDIOVASCULAR: Denies chest pain, palpitations, or edema. RESPIRATORY: Denies cough or dyspnea. GASTROINTESTINAL: Denies abdominal pain, nausea, vomiting, or diarrhea. GENITOURINARY: Denies dysuria or hematuria. SKIN: Reports rash to the left anterior and posterior chest. MUSCULOSKELETAL: Denies back pain, joint pain, or myalgia. NEUROLOGIC: Reports numbness and tingling to left anterior/posterior chest. Denies headache, dizziness, or weakness. PSYCHIATRIC: Denies anxiety or depression. [facility] Past Medical History Medical History DVT (deep venous thrombosis) GERD (gastroesophageal reflux disease) ROSS (obstructive sleep apnea) Asthma CAD (coronary artery disease) has ablation done for irregular heartbeat Surgical History Surgical History History of permanent cardiac pacemaker placement H/O knee surgery History of open heart surgery Family History Family History Mother Family history non-contributory Social History Social History Smoking status: Never smoker Alcohol intake: never Substance use: never Do You Feel Safe in your Home?: Yes Lack of Transportation: No Lack of Food: Never True Current Housing: I Have Housing Concerned About Future Housing: No Difficulty Paying Gas/Electric Bills: No Difficulty Paying for Meds: No Currently Unemployed: No Education: Bachelor's Degree Difficulty w/ Childcare or Family Care: No Living arrangements: with family Gender identity (if verbalized by the patient): Male Spiritual care concerns: No Exam Narrative: GENERAL: Well-appearing, well-nourished, and in no acute distress. HEAD: Normocephalic, atraumatic. EYES: PERRLA and EOMI. ENT: Nares clear, no rhinorrhea or epistaxis. Mucous membranes moist. Oropharynx without tonsillar hypertrophy exudate or other lesions. Bilateral TMs pearly lehman nonbulging NECK: Supple. No adenopathy or masses. No carotid bruits or JVD CHEST: Clear to auscultation. No respiratory distress. No wheezes rales or rhonchi HEART: Regular rate and rhythm. No murmur heard. Normal peripheral pulses. ABDOMEN: Soft, nontender, nondistended, normal active bowel sounds. EXTREMITIES: Normal range of motion. No edema. SKIN: there are erythematous vesicles noted to the left anterior posterior chest wall which do not cross the midline. NEURO: No focal deficits. Alert and oriented x3. PSYCH: Normal mood and affect. Course Course Emergency Course: This is a 69-year-old male who presented for evaluation of a rash to the left anterior and posterior chest wall. This is a classic presentation of shingles. Will discharge with Valtrex. Will adjust his gabapentin dosing to assist with his symptoms as he is having difficulty sleeping at night. He should follow-up with his primary care provider and go to the ER worsening symptoms. Patient in agreement with plan of care. Level of Care: Express Care Visit Vital Signs Vital signs: Vital Signs Temperature 36.6 C 11/05/24 08:20 Pulse Rate 69 11/05/24 08:20 Respiratory Rate 16 11/05/24 08:20 Blood Pressure 95/69 L 11/05/24 08:20 Pulse Oximetry 99 11/05/24 08:20 Temperature 36.6 C 11/05/24 08:20 Pulse Rate 69 11/05/24 08:20 Respiratory Rate 16 11/05/24 08:20 Blood Pressure 95/69 L 11/05/24 08:20 Pulse Oximetry 99 11/05/24 08:20 Medical Decision Making Vital Signs Vital Signs: Vital Signs Temperature 36.6 C 11/05/24 08:20 Pulse Rate 69 11/05/24 08:20 Respiratory Rate 16 11/05/24 08:20 Blood Pressure 95/69 L 11/05/24 08:20 Pulse Oximetry 99 11/05/24 08:20 Temperature 36.6 C 11/05/24 08:20 Pulse Rate 69 11/05/24 08:20 Respiratory Rate 16 11/05/24 08:20 Blood Pressure 95/69 L 11/05/24 08:20 Pulse Oximetry 99 11/05/24 08:20 Discharge Plan Discharge Clinical Impression: Herpes zoster Patient Disposition: Home Condition: Stable Instructions: Antibiotic Form, Shingles (ED) Patient Language: Niuean Prescriptions: New valacyclovir [Valtrex] 1 gram tablet 1,000 mg PO TID Qty: 30 0RF gabapentin 300 mg capsule 300 - 600 mg PO TID PRN (Reason: pain) Qty: 60 0RF No Action dexamethasone 4 mg tablet 4 mg PO DAILY 5 Days Qty: 5 0RF cyclobenzaprine 10 mg tablet 10 mg PO HS PRN (Reason: muscle spasm) Qty: 10 0RF Eliquis 5 mg tablet 5 mg PO BID dofetilide 500 mcg capsule 500 mcg PO BID Trelegy Ellipta 100-62.5-25 mcg blister with device 1 inh inhalation DAILY magnesium 200 mg tablet 400 mg PO DAILY midodrine 5 mg tablet 5 mg PO .QD Rx Instructions: do not give last dose of day after 6PM or within 4 hrs of bedtime pantoprazole 20 mg Tablet,Delayed Release (Dr/Ec) 20 mg PO QAM magnesium oxide 400 mg magnesium Tablet 400 mg PO BID gabapentin 300 mg tablet 600 mg PO DAILY Follow-up/Referrals: Alonzo,Gray King MD [Primary Care Provider] - Time of Disposition: 08:31
== END 2024-11-05 08:34 | disposition home or self-care (01) ==
PROVIDERS: Emergency Provider Nurse Practitioner; PCP Internal Medicine
DX: B02.9 Zoster without complications (principal); I25.10 Atherosclerotic heart disease of native coronary artery without angina pectoris; J45.909 Unspecified asthma, uncomplicated; K21.9 Gastro-esophageal reflux disease without esophagitis; Z86.718 Personal history of other venous thrombosis and embolism; Z79.01 Long term (current) use of anticoagulants
CPT/HCPCS: 99213; G0463